=== PATIENT | male | born 1945 | race Caucasian/White ===

== ENCOUNTER 2017-06-21 05:48 | Emergency (ER) | payer MEDICARE, OTHER ==
--- NOTE | 2017-06-21 06:29 | ERNOTE ---
Medical Problem HPI - Narrative Date of Service: 06/21/17 - General Chief Complaint: General Assessment Time Seen by Provider: 06/21/17 06:15 Source: patient Exam Limitations: no limitations - Immun/Allergies/Home Medications Immunizations: IMMUNIZATION HX Immunizations Up to Date Yes History of Influenza Vaccine No Hx Pneumococcal Vaccination Yes Allergies/Adverse Reactions: Allergies No Known Allergies Allergy (Verified 06/21/17 06:02) Home Medications: HOME MEDICATIONS Clopidogrel Bisulfate [Clopidogrel] 75 mg PO DAILY 11/20/12 [Last Taken Unknown] Losartan Potassium [Cozaar] 50 mg PO DAILY 11/20/12 [Last Taken Unknown] amLODIPine BESYLATE [Norvasc (Amlodipine)] 10 mg PO DAILY 11/20/12 [Last Taken 06/21/17 03:00] Propranolol HCl [Inderal] 20 mg PO DAILY 12/18/14 [Last Taken Unknown] Atorvastatin Calcium 40 mg PO DAILY 06/21/17 [Last Taken Unknown] Pantoprazole Sodium 20 mg PO DAILY 06/21/17 [Last Taken Unknown] - History of Present History Narrative: 71 year old that was not sleeping at 0300 hours and experienced mild chest pain that lasted for a few minutes. Denies any shortness of breath, diaphoresis or chest pain at this time. His primary concern for coming in this morning was his elevated blood pressure readings at approximately 0300 hours which were 195/ 106. Denies any headaches, changes in vision or N/V. s/p Stent placement. The last cardiac stress test was done 8 months ago. Date (Duration): 06/21/17 Time (Timing): 06:23 Timing: gone now Severity: mild Modifying Factors - (Improves): Present: other - nothing Modifying Factors - (Worsens): Present: other - nothing Review of Systems - Review of Systems Constitutional: Present: no symptoms reported EYE: Present: no symptoms reported ENT: Present: no symptoms reported Respiratory: Present: no symptoms reported Cardiology: Present: no symptoms reported Gastrointestinal/Abdominal: Present: no symptoms reported Genitourinary: Present: no symptoms reported Musculoskeletal: Present: no symptoms reported Skin: Present: no symptoms reported Neurological: Present: no symptoms reported, pre-existing deficit Endocrine: Present: no symptoms reported Psych: Present: no symptoms reported All Other Systems: All systems neg except as marked - Patient's Past Medical History Patient History - Medical: Diabetes Type 2 Patient History - Cardiac/Respiratory: Hypertension, Hyperlipidemia Patient History - Surgical Procedures: Cholecystectomy, Cardiac stent, Other Patient History - Other: None - Social History Living Situations: home Psych History: No pertinent hx Smoking Status: Former smoker Have you smoked in the past 12 months: No Alcohol Use: occasionally Drug Use: none - Immunizations Immunizations Up to Date: Yes Hx Pneumococcal Vaccination: Yes History of Influenza Vaccine: No Physical Exam - Physical Exam General Appearance: Present: no apparent distress Head Exam: Present: normal inspection Eye Exam: Normal inspection: bilateral Ears, Nose, Throat: Present: normal ENT inspection Neck: Present: normal inspection, supple Respiratory: Present: no respiratory distress Cardiovascular/Chest: Present: regular rate, rhythm Gastrointestinal/Abdominal: Present: normal bowel sounds Back Exam: Present: normal inspection Extremity Exam: Present: normal inspection Neurological Exam: Present: alert, oriented Skin Exam: Present: normal color ED Progress - Results and Orders Patient's Lab Results:: I have reviewed the patient's lab results. - Vital Signs Patient's Vital Signs:: I have reviewed the patient's vital signs. Vital Signs: Vital Signs 06/21/17 06/21/17 06/21/17 05:54 06:01 06:10 Temperature 36.7 C 37.2 C Pulse Rate 73 69 71 Respiratory 18 12 Rate Blood Pressure 176/99 159/105 O2 Sat by Pulse 97 97 Oximetry 06/21/17 06:11 Temperature Pulse Rate Respiratory Rate Blood Pressure 159/105 O2 Sat by Pulse Oximetry - EKG EKG: NSR EKG read: Interp. by me EKG Comments: rate 69, normal axis, sinus - Progress/Reassessment Chief Complaint: General Assessment Progress:: Unchanged Progress Note-Subjective: 06/21/17 07:10 hemodynamically stable. Departure Clinical Impression: Atypical chest pain - Departure Disposition: Home self-care Condition: Good Instructions: Nonspecific Chest Pain, [id number] Print Language: Azeri Additional Instructions: If the pain occurs again return to the ED. See your doctor next week so that additional blood pressure medications can be added to better manage your hypertension. Check your blood pressure a couple times per day and put the results in a book so that your doctor can look at them.
[2017-06-21 06:51] LABS: Anion Gap 13.1 mmol/L (6.8-13.8); BUN/Creatinine Ratio 13.5 (9.0-21.6); Blood Urea Nitrogen 14 mg/dL (6-23); Calcium * 9.2 mg/dL (7.9-10.9); Carbon Dioxide 28.3 mmol/L (24-32.6); Chloride 102 mmol/L (97-106); Estimated Creat Clear 71.5; Glucose * 173 mg/dL (70-110); Potassium 4.4 mmol/L (3.4-4.6); Sodium 139 mmol/L (132-142)
[2017-06-21 06:55] LABS: Troponin I Less than 0.017 ng/ml (0.00-0.10)
[2017-06-21 07:26] VITALS: BP 129/92
== END 2017-06-21 07:30 | disposition home or self-care (01) ==
LOC: ER 05:48
DX: R07.89 Other chest pain (principal); Z95.5 Presence of coronary angioplasty implant and graft; E78.5 Hyperlipidemia, unspecified; Z87.891 Personal history of nicotine dependence